=== PATIENT | male | born 1980 ===

== ENCOUNTER 2024-01-06 11:36 | Emergency (ER) | payer OTHER, SELFPAY ==
--- NOTE | ~2024-01-06 | XR_ITS ---
EXAMINATION: XR shoulder RT min 2V DATE: 01/06/2024 12:06 INDICATION: Right shoulder pain. TECHNIQUE: 5 views of right shoulder were obtained. COMPARISON: None. FINDINGS: Alignment is normal. No fracture. Glenohumeral joint is normal. There is moderate acromiocl avicular joint osteoarthritis. IMPRESSION: 1. Moderate acromioclavicular joint osteoarthritis. Reviewed, dictated and finalized at location A. 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
--- NOTE | ~2024-01-06 | XR_ITS ---
EXAMINATION: XR elbow RT min 3V DATE: 01/06/2024 12:06 INDICATION: Right elbow pain. Injury. TECHNIQUE: 5 views of right elbow were obtained. COMPARISON: None. FINDINGS: Alignment is normal. No fracture. Joint spaces are normal. No elbow joint effusion. IMPRESSION: 1. No fracture. Reviewed, dictated and finalized at location A. 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 No fracture.
[2024-01-06 11:37] VITALS: BP 129/92; PULSE 60; RESP 18; TEMP 36.2; O2SAT 100
--- NOTE | 2024-01-06 12:51 | ED_ITS ---
HPI - General Adult General Chief complaint: Extremity Injury, Upper Stated complaint: fall, R arm pain Time Seen by Provider: 01/06/24 11:43 History of Present Illness HPI narrative: This is a 43-year-old male presenting ED with right arm pain. Patient fell off a step ladder landing on his right elbow. He sustained a laceration his elbow has pain in his right trapezius. No head trauma or neck pain. No use of blood thinners. No other injuries. Related Data Allergies Allergy/AdvReac Type Severity Reaction Status Date / Time No Known Allergies Allergy Verified 01/06/24 11:50 [facility] Social History Social History (System 12/10/19 @ 14:48 by Shaka Hudson) Smoking status: Never smoker Alcohol intake: current Exam Narrative: APPEARANCE: No apparent distress. Head: atraumatic. EYES: EOMI, NOSE: Atraumatic NECK: No midline cervical pain, no pain at full range of motion neck RESPIRATORY: No increased rate of breathing CARDIOVASCULAR: RRR, ABDOMINAL: Non-distended MUSCULOSKELETAl: Focal exam of the right extremity revealed no obvious deformities. There is tenderness over the right trapezius muscle. No bruising or swelling. Hand is neurovascularly intact. Radial ulnar median nerve motor function intact NEURO: Alert. Moving 4/4 extremities SKIN:: 2 cm irregular laceration over the right elbow. PSYCHIATRIC: Normal affect Course Vital Signs Vital signs: Vital Signs Temperature 97.2 F L 01/06/24 11:37 Pulse Rate 60 01/06/24 11:37 Respiratory Rate 18 01/06/24 11:37 Blood Pressure 129/92 H 01/06/24 11:37 Pulse Oximetry 100 01/06/24 11:37 Oxygen Delivery Room Air 01/06/24 11:37 Temperature 97.2 F L 01/06/24 11:37 Pulse Rate 60 01/06/24 11:37 Respiratory Rate 18 01/06/24 11:37 Blood Pressure 129/92 H 01/06/24 11:37 Pulse Oximetry 100 01/06/24 11:37 Oxygen Delivery Room Air 01/06/24 11:37 Procedures Laceration Laceration 1: Date: 01/06/24 Site: upper extremity Side (If applicable): right Size (cm): 2 Description: irregular Depth: simple, single layer Local Anesthetic: lidocaine 1% and with epi Pre-repair: wound explored, irrigated and irrigated extensively ====== Skin Level ====== Skin layer closed with: prolene Size (cm): 4-0 Number of sutures: 3 ====== Subcutaneous Layer ====== ====== Muscle Layer ====== ====== Tendon Layer ====== Medical Decision Making MDM Narrative Medical decision making narrative: -Course: 43-year-old male presenting a fall off a step stool. X-rays of the shoulder elbow are negative for fracture. Patient has pain over the right trapezius. Small laceration of the right elbow was irrigated profusely then repaired using Prolene sutures. Patient has sutures removed in 10-14 days. Patient discharged with pain medication, muscle relaxers and return precautions Vital Signs Vital Signs: Vital Signs Temperature 97.2 F L 01/06/24 11:37 Pulse Rate 60 01/06/24 11:37 Respiratory Rate 18 01/06/24 11:37 Blood Pressure 129/92 H 01/06/24 11:37 Pulse Oximetry 100 01/06/24 11:37 Oxygen Delivery Room Air 01/06/24 11:37 Temperature 97.2 F L 01/06/24 11:37 Pulse Rate 60 01/06/24 11:37 Respiratory Rate 18 01/06/24 11:37 Blood Pressure 129/92 H 01/06/24 11:37 Pulse Oximetry 100 01/06/24 11:37 Oxygen Delivery Room Air 01/06/24 11:37 Discharge Plan Discharge Clinical Impression: Strain of right trapezius muscle, Fall Patient Disposition: Home, Self-Care Condition: Stable Instructions: Antibiotic Form, Arthralgia (ED) Additional Instructions: Please use Motrin Tylenol Robaxin for pain control. Please follow-up with your primary care physician as needed. Return to the ED if you develop signs of infection, severe pain or weakness your arm. Sutures should removed in 10-14 days. Prescriptions: New methocarbamol 750 mg tablet 1,500 mg PO TID Qty: 60 0RF Follow-up/Referrals: PHYSICIAN,TRANSIT PLANNING DIRECTOR [Primary Care Provider] - Stand Alone Forms: Work/School Release IP
[2024-01-06] MEDS: TETANUS,DIPHTHERIA,AC PERTUSSIS ADULT (0.5 ML) BOOSTRIX IM (13:08)
[2024-01-06 13:09] VITALS: BP 135/85; PULSE 66; RESP 18; O2SAT 99
== END 2024-01-06 13:10 | disposition home or self-care (01) ==
PROVIDERS: Emergency Provider Emergency Medicine
DX: S51.011A Laceration without foreign body of right elbow, initial encounter (principal); S46.811A Strain of other muscles, fascia and tendons at shoulder and upper arm level, right arm, initial encounter; Z23 Encounter for immunization; M19.011 Primary osteoarthritis, right shoulder; W11.XXXA Fall on and from ladder, initial encounter
CPT/HCPCS: 12001; 73030; 73080; 90471; 90715; 99284